=== PATIENT | female | born 1980 | race Caucasian/White ===

== ENCOUNTER 2024-08-20 20:09 | Emergency (ER) | payer BC, SELFPAY ==
[2024-08-20 20:35] VITALS: BP 169/105
[2024-08-20 20:48] LABS: % Immature Granulocytes 0.5 % (0-0.5); % Lymphocytes 24.4 % (20.5-51.1); % Monocytes 10.2 % (1.7-9.3); % Neutrophils 55.9 % (42.2-75.2); Absolute Basophils 0.1 10^3/uL (0-0.2); Absolute Eosinophils 0.7 10^3/uL (0-0.7); Absolute Lymphocytes 2.2 10^3/uL (1.2-3.4); Absolute Monocytes 0.9 10^3/uL (0.1-0.6); Absolute Neutrophils 4.9 10^3/uL (1.4-6.5); Hematocrit 39.3 % (37.0-47.0); Hemoglobin 13.4 g/dL (12.0-16.0); Mean Corp Hgb Conc. 34.1 g/dL (33.0-37.0); Mean Corpuscular Hgb 29.7 pg (27.0-31.0); Mean Corpuscular Volume 87.1 fL (81.0-99.0); Mean Platelet Volume 9.9 fL (7.4-10.4); Nucleated Red Blood Cells % 0 %; Platelet Count 267 10^3/uL (130-400); Red Blood Cell Count 4.51 10^6/uL (4.20-5.40); White Blood Cell Count 8.8 10^3/uL (4.8-10.8)
[2024-08-20 21:05] LABS: HCG, Serum Qualitative Screen Negative
[2024-08-20 21:07] LABS: ALT (SGPT) 30 U/L (0-35); AST (SGOT) 31 U/L (14-36); Alkaline Phosphatase 76 U/L (38-126); Blood Urea Nitrogen 12 mg/dl (7-17); Calcium 9.9 mg/dl (8.4-10.2); Carbon Dioxide 25 mmol/L (22-30); Chloride 101 mmol/L (98-107); Glucose 104 mg/dl (70-99); Sodium 136 mmol/L (135-145); Total Bilirubin 0.2 mg/dl (0.2-1.3); Total Protein 8.2 g/dl (6.3-8.2); eGFR > 60.00
[2024-08-21 00:45] VITALS: BP 175/101
--- NOTE | 2024-08-21 01:53 | ED.GENMED ---
History of Present Illness
General
Chief Complaint: Blood Pressure Problem
Time Seen by Provider: 08/21/24 01:41
History of Present Illness
History of Present Illness:
Patient is a 43-year-old woman with history of hypertension on Benicar 40 mg presenting to the emergency department with hypertension. Patient states that 2 weeks ago she stopped taking her Benicar as she ran out of it and her blood pressure was
improved. However patient noticed that her diet causes her blood pressure to be elevated. With the holidays patient does state that she is been having more sugar which causes her hypertension. Today out of curiosity she checked her blood pressure
and it was elevated at 140/110. She went to urgent care and a rash and states that she immediately walked and they checked her blood pressure and it was 206/127 and they sent her here for further evaluation. She denies any headache numbness
tingling weakness chest pain shortness of breath or urinary changes. She states that she would have taken her Benicar however she ran out of it. She is seeing her cook short order who prescribes her Benicar next week. At this time patient has no
complaints.
Phy Exam
Physical Exam
Physical Exam:
GENERAL: in no acute distress
HEENT: normocephalic, extraocular movements intact, moist oral mucosa
NECK: normal inspection
RESPIRATORY: no respiratory distress, clear to auscultation bilaterally
CARDIOVASCULAR: regular rate and rhythm
ABDOMEN/: soft, non-distended, non-tender to palpation, no rebound or guarding
EXTREMITIES: non-tender, no edema/swelling
NEUROLOGIC: awake and alert, moves all extremities
SKIN: warm
Course
Orders/Labs/Results
Orders:
Orders
08/20/24 20:29
Electrocardiogram (*1) Urgent
Reason for Study: Other
Other Reason for Exam: Blood pressure
Cardiology Consult: Unknown
08/20/24 20:30
EKG- Treatment ONCE
Test Result ONCE
08/20/24 20:43
Complete Blood Count/With Diff Urgent
Comprehensive Metabolic Panel Urgent
HCG, Serum Qualitative Screen Urgent
Abnormal Lab Results
08/20/24
20:43
Absolute Monos (auto) 0.9 H 10^3/uL
(0.1-0.6)
Monocytes % 10.2 H %
(1.7-9.3)
Eosinophils % 8.0 H %
(0-6)
Glucose 104 H mg/dl
(70-99)
08/20/24 20:43
08/20/24 20:43
Vital Signs
Initial and Last Documented VS:
Initial Vital Signs
BP
169/105
08/20/24 20:35
Last Documented Vital Signs
Temp Pulse Resp BP Pulse Ox
98.9 F 74 18 175/101 100
08/20/24 20:36 08/21/24 00:45 08/21/24 00:45 08/21/24 00:45 08/21/24 00:45
MDM/Problems Addressed
Differential Diagnosis Includes:
Patient is a 43-year-old woman with history of hypertension presenting to the emergency department with elevated blood pressure. On arrival patient with a blood pressure 169/105. Initially she was tachycardic during my evaluation that had
resolved. She does state that that occurred when she just walked into the emergency department. At this time hypertension is asymptomatic. She did have blood work obtained prior to evaluation which is unremarkable. After discussion with patient
we will restart her Benicar. Patient will follow-up with her cook short order as scheduled. She will keep a blood pressure log. All questions answered. Will discharge at this time.
*Critical Care Note
Total Time (30-74mins, 75-104mins- exclusive of procedures): Not Applicable
ED Attending Note
-
Portions of this chart may have been created with voice recognition software.� Occasional wrong word or��sound alike� substitutions may have occurred due to the inherent limitations of voice recognition software.
Discharge Plan
Departure
Patient Disposition: Home (Routine Discharge)
Date of Disposition: 08/21/24
Time of Disposition: 01:53
Patient with high blood pressure during this ER visit?: Yes
Discharge Problem:
Hypertension
Instructions: High Blood Pressure (DC)
Prescriptions:
New
olmesartan [Benicar] 40 mg tablet
40 mg PO DAILY Qty: 30 0RF
Referrals:
NONE,* [Family Provider] -
Interventions
Interventions:
*Risk Screen - Suicide Last Done: 08/20/24 20:21
*General Assessment Last Done: 08/20/24 20:21
*Neglect/Abuse Screening Last Done: 08/20/24 20:21
ED- Fall Risk Assessment Last Done: 08/20/24 20:21
ED- Cardiac Assessment Last Done: 08/21/24 00:49
ED- Neurological Assessment Last Done: 08/21/24 00:49
ED- Pulmonary Assessment Last Done: 08/21/24 00:49
Discharge Date and Time
Print Language: AMHARIC
[2024-08-21 02:03] VITALS: BP 185/115
== END 2024-08-21 02:04 | disposition home or self-care (01) ==
LOC: EMR 20:09
PROVIDERS: Emergency Medicine; EMERGENCY PHYSICIAN Student in an Organized Health Care Education/Training Program
DX: I10 Essential (primary) hypertension (principal); Z79.899 Other long term (current) drug therapy
CPT/HCPCS: 99284; 80053; 84703; 85025; 93005